=== PATIENT | female | born 1935 | race Caucasian/White ===

== ENCOUNTER 2021-07-18 21:50 | Inpatient (IN) | payer OTHER ==
[~2021-07-18] VITALS: Ht 162.6 cm; Wt 72.6 kg
[2021-07-18 22:06] VITALS: BP_SYST 141
--- NOTE | 2021-07-18 22:06 | NUR ---
JOCY Mcarthur at bedside examining patient.
--- NOTE | 2021-07-18 22:30 | NUR ---
Pt C/O lower abdominal pain, urinary retention and hematuria Pt recently hospitalized at [facility] for blood in urine AOX4 VSS NAD at this time Will continue to monitor
[2021-07-18 22:50] LABS: ANION GAP 9 (5-15); BASOPHILS % (AUTO) 0.6 % (0.0-2.0); CALCIUM 8.8 mg/dL (8.4-11.0); CREATININE 1.42 mg/dL (0.55-1.30); EOSINOPHILS # (AUTO) 0.6 K/uL (0.0-0.4); EOSINOPHILS % (AUTO) 6.8 % (0.0-4.0); GLUCOSE 130 mg/dL (70-99); HEMATOCRIT 27.1 % (36-48); HEMOGLOBIN 9.1 g/dL (12.0-16.0); LYMPHOCYTES % (AUTO) 11.5 % (20.5-51.5); MEAN CORPUSCULAR HEMOGLOBIN 28 pg (27-31); MEAN CORPUSCULAR HGB CONC 34 % (32-36); MEAN CORPUSCULAR VOLUME 84 fL (79.0-98.0); MONOCYTES # (AUTO) 0.9 K/uL (0.0-1.0); MONOCYTES % (AUTO) 9.8 % (1.7-9.3); NEUTROPHILS # (AUTO) 6.2 K/uL (1.8-7.7); NEUTROPHILS % (AUTO) 71.3 % (40.0-70.0); PLATELET COUNT (AUTO) 367 K/uL (130-430); POTASSIUM 3.4 mmol/L (3.5-5.1); RED BLOOD CELL COUNT(AUTO) 3.24 MIL/uL (4.2-6.2); RED CELL DISTRIBUTION WIDTH 14.3 % (9.0-15.0); UREA NITROGEN, BLOOD 21 mg/dL (8-21); WHITE BLOOD COUNT (AUTO) 8.7 K/uL (4.8-10.8)
[2021-07-18 22:56] LABS: ALANINE AMINOTRANSFERASE 11 U/L (12-78); ALBUMIN 3.3 g/dL (3.4-4.8); ASPARTATE AMINOTRANSFERASE 14 U/L (10-37)
[2021-07-18 23:02] LABS: BILIRUBIN,URINE NEGATIVE (NEGATIVE); BLOOD, URINE NEGATIVE (NEGATIVE); CLARITY/URINE CLEAR (CLEAR); COLOR,URINE YELLOW (YELLOW); GLUCOSE,URINE NEGATIVE (NEGATIVE); KETONES,URINE NEGATIVE (NEGATIVE); LEUKOCYTE ESTERASE ,URINE NEGATIVE (NEGATIVE); NITRITE, URINE NEGATIVE (NEGATIVE); PROTEIN URINE TRACE (NEGATIVE); UROBILINOGEN,URINE 0.2 (0.2-1.0)
[2021-07-18 23:04] LABS: SODIUM SERUM 116 mmol/L (136-145)
[2021-07-18 23:05] LABS: CHLORIDE 85 mmol/L (98-107)
--- NOTE | 2021-07-18 23:09 | NUR ---
Call from adelina for critical Sodium @116 Chloride 85 made aware
[2021-07-18 23:11] LABS: TOTAL BILIRUBIN 0.2 mg/dL (0.0-1.0)
[2021-07-18] MEDS ORDERED: NACL 0.9% 1,000 ML IV ONE (23:15)
[2021-07-18 23:29] LABS: BACTERIA,URINE RARE /HPF (None Seen); MUCUS,URINE None Seen /LPF (None Seen); RBC,URINE NONE SEEN /HPF (0-3); WBC,URINE 0-3 /HPF (0-3)
--- NOTE | 2021-07-18 23:47 | NUR ---
Admit bed requested Patient will be admitted to care of Admitted to Tele unit. Diagnosis Hyponatremia Inpatient (Yes or No) no Observation (Yes or No) yes Orientation concerns or request close to nursing station (Yes or No) no Covid Status pending On vent or bipap Isolation requirements Needs a sitter From Home (Yes or if No enter name of facility) yes Requires Dialysis (Yes or No) Med Rec Completed (Yes of No)
[2021-07-19] MEDS: NACL 0.9% 1,000 ML IV SCH ×2 (00:08→14:18)
--- NOTE | 2021-07-19 01:55 | NUR ---
Patient will be admitted to care of dR. Xiong. Admitted to tele unit. Will go to room 133b. Belongings list completed. Complete and up to date summary report printed. SBAR report to be given at bedside with opportunity for questions.
[2021-07-19 02:10] VITALS: BP_SYST 149
[2021-07-19] MEDS ORDERED: LOSA50TA3 PO (02:50)
[2021-07-19] MEDS ORDERED: TRAZ-250 PO (02:50)
[2021-07-19] MEDS ORDERED: SENN8.6T19 PO (02:50)
[2021-07-19] MEDS ORDERED: METO25TA3 PO (02:50)
[2021-07-19] MEDS ORDERED: LIP10 PO (02:50)
[2021-07-19] MEDS ORDERED: HYDR-3917 PO (02:50)
[2021-07-19] MEDS ORDERED: VITD2000 PO (02:50)
[2021-07-19] MEDS ORDERED: HYDR25TA4 PO (02:50)
[2021-07-19] MEDS ORDERED: NOR10 PO (02:50)
[2021-07-19] MEDS ORDERED: GLIP5TAB26 PO (02:50)
--- NOTE | 2021-07-19 02:55 | NUR ---
ADMISSION 86 Y/O FEMALE UNDER DOCTOR BRUNA. DAUGHTER AND PATIENT CONCERN REGARDING URINARY ISSUES/BLEEDING/CLOTTING/CHRONIC GARCIA CATHETER FOR 15 YEARS CHANGED EVERY MONTH. UROLOGY CONSULT PENDING WITH UROLOGIST DOCTOR LILLIANA FROM [facility] NEXT WEEK FOR CYSTOSCOPY, 07/25/21 AND HE ADVISED TO ATTEMPT TO LEAVE GARCIA CATHETER OUT FOR THE TIME BEING. COOPER LUCIANO RN
[2021-07-19] MEDS ORDERED: SODIUM CHLORIDE PO (03:10)
--- NOTE | 2021-07-19 07:02 | NUR ---
Handoff with patient day team registered nurse, Pamela. Jama Santo RN
[2021-07-19 08:00] VITALS: BP_SYST 148
[2021-07-19] MEDS ORDERED: ZOLPIDEM TARTRATE 5 MG TABLET PO PRN (08:00)
[2021-07-19] MEDS ORDERED: DEXTROSE 50% JECT 50 ML DISP.SYRIN IVP PRN (08:00)
[2021-07-19] MEDS ORDERED: NALOXONE HCL 0.4 MG/ML AMP (NARCAN) IVP PRN ×2 (08:00)
[2021-07-19] MEDS ORDERED: DOCUSATE SODIUM 100 MG CAPSULE PO PRN (08:00)
[2021-07-19] MEDS ORDERED: ACETAMINOPHEN 325 MG TABLET PO PRN ×2 (08:00→08:15)
[2021-07-19] MEDS ORDERED: MUPIROCIN 2% TOPICAL OINTMENT 22 GM NS PRN (08:00)
[2021-07-19] MEDS ORDERED: LORazepam 2 MG/ML VIAL IVP PRN (08:00)
[2021-07-19] MEDS ORDERED: POTASSIUM CHLORIDE 20 MEQ TAB.PRT.SR PO PRN (08:00)
[2021-07-19] MEDS ORDERED: ONDANSETRON HCL 4 MG/2 ML VIAL IVP PRN (08:00)
[2021-07-19] MEDS ORDERED: INSULIN LISPRO SLIDING SCALE 100 UNITS/ML VIAL (humaLOG) SUBCUT PRN (08:00)
[2021-07-19] MEDS ORDERED: MAGNESIUM SULFATE 50 ML IV PRN (08:00)
[2021-07-19] MEDS ORDERED: MORPHINE 2 MG/ML INJ. SYRINGE IVP PRN ×2 (08:00)
[2021-07-19 08:53] LABS: ANION GAP 8 (5-15); CALCIUM 8.9 mg/dL (8.4-11.0); CHLORIDE 87 mmol/L (98-107); CREATININE 1.27 mg/dL (0.55-1.30); GLUCOSE 149 mg/dL (70-99); POTASSIUM 3.5 mmol/L (3.5-5.1); UREA NITROGEN, BLOOD 19 mg/dL (8-21)
[2021-07-19] MEDS: HEPARIN SODIUM,PORCINE 5,000 UNITS/ML VIAL SUBCUT SCH ×2 (09:16→21:48)
[2021-07-19] MEDS: amLODIPine BESYLATE 10 MG TABLET PO SCH (09:17)
[2021-07-19] MEDS: CHOLECALCIFEROL (VITAMIN D3) 2,000 UNIT TABLET PO SCH (09:18)
[2021-07-19] MEDS: ATORVASTATIN 10 MG TABLET PO SCH (09:18)
[2021-07-19] MEDS: LOSARTAN POTASSIUM 50 MG TABLET (COZAAR) PO SCH ×2 (09:18→21:45)
--- NOTE | 2021-07-19 09:20 | NUR ---
CONSULT UROLOGY URINARY RETENTION [facility]ICK TARIQ [phone] S[facility]
--- NOTE | 2021-07-19 09:21 | NUR ---
CONSULT NEPHROLOGY [facility] [phone] [facility]
[2021-07-19 09:28] LABS: SODIUM SERUM 118 mmol/L (136-145)
[2021-07-19] MEDS: SODIUM CHLORIDE 500 MG TABLET PO SCH (10:48)
[2021-07-19] MEDS: glipiZIDE XL 2.5 MG/TAB (GLUCOTROL XL) PO SCH (10:49)
[2021-07-19 11:45] VITALS: BP_SYST 141
--- NOTE | 2021-07-19 14:43 | NUR ---
PRE VOIDING AND POST VOIDING URINE DURING RENAL ULTRASOUND VOLUME OF URINE NOTED ON RENAL ULTRASOUND 196ML, POST VOID URINE AFTER 91ML VOLUME OF URINE POST VOID DURING RENAL SCAN. DR MCFARLAND MADE AWARE. DR FUENTES TO EVALUATE PATIENT.
[2021-07-19 16:17] VITALS: BP_SYST 137
--- NOTE | 2021-07-19 18:36 | NUR ---
Patient is resting quietly at this time. Pt's daughter is present at bedside to offer support. Pt has been up to bedside commode frequently to void this shift- with ass't. She has been able to void freely and maintain continence of her bladder. Pt offered snacks in between meals for glucose level 68 mg/dl. Pt consumed 160 ml of orange juice. No s/s hypoglycemic reactions noted. Will continue to monitor.
[2021-07-19 20:45] VITALS: BP_SYST 131
[2021-07-19] MEDS ORDERED: traZODone HCL 50 MG TABLET (DESYREL) PO SCH (21:00)
[2021-07-20 02:20] VITALS: BP_SYST 145
[2021-07-20] MEDS: NACL 0.9% 1,000 ML IV SCH (04:36)
[2021-07-20 06:34] LABS: ANION GAP 9 (5-15); CALCIUM 7.9 mg/dL (8.4-11.0); CHLORIDE 93 mmol/L (98-107); CREATININE 1.06 mg/dL (0.55-1.30); GLUCOSE 98 mg/dL (70-99); POTASSIUM 3.6 mmol/L (3.5-5.1); SODIUM SERUM 126 mmol/L (136-145); UREA NITROGEN, BLOOD 15 mg/dL (8-21)
[2021-07-20 06:37] LABS: BASOPHILS # (AUTO) 0.1 K/uL (0.0-0.2); BASOPHILS % (AUTO) 0.9 % (0.0-2.0); EOSINOPHILS # (AUTO) 0.3 K/uL (0.0-0.4); EOSINOPHILS % (AUTO) 5.5 % (0.0-4.0); HEMATOCRIT 22.7 % (36-48); HEMOGLOBIN 7.8 g/dL (12.0-16.0); LYMPHOCYTES # (AUTO) 0.8 K/uL (1.0-5.5); LYMPHOCYTES % (AUTO) 13.6 % (20.5-51.5); MEAN CORPUSCULAR HEMOGLOBIN 29 pg (27-31); MEAN CORPUSCULAR HGB CONC 34 % (32-36); MEAN CORPUSCULAR VOLUME 84 fL (79.0-98.0); MONOCYTES # (AUTO) 0.6 K/uL (0.0-1.0); MONOCYTES % (AUTO) 9.6 % (1.7-9.3); NEUTROPHILS # (AUTO) 4.1 K/uL (1.8-7.7); NEUTROPHILS % (AUTO) 70.4 % (40.0-70.0); PLATELET COUNT (AUTO) 328 K/uL (130-430); RED BLOOD CELL COUNT(AUTO) 2.72 MIL/uL (4.2-6.2); RED CELL DISTRIBUTION WIDTH 14.2 % (9.0-15.0); WHITE BLOOD COUNT (AUTO) 5.8 K/uL (4.8-10.8)
--- NOTE | 2021-07-20 07:30 | NUR ---
OPENING NOTE Patient awake and alert, sitting at bedside. Patient able to ambulate to the bedside commode with minimal assist. Patient complains of loose stools, MD aware. No IV access at this time, patient removed her IV at shift change. Patient denies pain, no sign of distress. Safety checks made and all needs met at this time, will continue to monitor.
[2021-07-20 08:00] VITALS: BP_SYST 144
--- NOTE | 2021-07-20 08:00 | NUR ---
ASSESSMENT SIGNED OFF Marleni, charge nurse, cosigned assessment because coverage RN, Eugenia, does not have access as a registry nurse.
[2021-07-20] MEDS: HEPARIN SODIUM,PORCINE 5,000 UNITS/ML VIAL SUBCUT SCH (08:32)
[2021-07-20] MEDS: CHOLECALCIFEROL (VITAMIN D3) 2,000 UNIT TABLET PO SCH (08:32)
[2021-07-20] MEDS: LOSARTAN POTASSIUM 50 MG TABLET (COZAAR) PO SCH (08:33)
[2021-07-20] MEDS: amLODIPine BESYLATE 10 MG TABLET PO SCH (08:33)
[2021-07-20] MEDS: SODIUM CHLORIDE 500 MG TABLET PO SCH (08:33)
[2021-07-20] MEDS: glipiZIDE XL 2.5 MG/TAB (GLUCOTROL XL) PO SCH (08:33)
[2021-07-20] MEDS: ATORVASTATIN 10 MG TABLET PO SCH (08:34)
--- NOTE | 2021-07-20 11:37 | NUR ---
PATIENT IS SAFE TO AMBULATE WITH NURSING ASSISTANCE. SHE IS TO USE THE FWW. SHE DOES NOT NEED FURTHER PHYSICAL THERAPY AT THIS TIME. RECOMMEND HOME HEALTH PT. SEE THE DAILY PHYSICAL THERAPY NOTES.
[2021-07-20 12:58] VITALS: BP_SYST 139
--- NOTE | 2021-07-20 13:00 | NUR ---
NEW IV PLACED IV placed in right AC, 22g. Previous IV was pulled out by patient. Prescribed fluids resumed.
[2021-07-20 15:27] VITALS: BP_SYST 139
--- NOTE | 2021-07-20 16:31 | NUR ---
D/C Patient Patient given medication reconciliation form and D/C instructions. Exit Care provided. Patient verbalized understanding. MD discussed with patient the results and treatment provided. Ambulatory with walker assist for discharge to home. Patient in stable condition, ID band removed. IV catheter removed, intact and dressing applied, no active bleeding. Patient educated on pain management. Patient going home via private auto with daughters. All belongings sent with patient.
== END 2021-07-20 16:25 | disposition home health service (06) | DRG 698 ==
LOC: SED 21:50 → STU 23:52 → SMU 07-20 13:24
PROVIDERS: ADMIT General Practice; ATTEND General Practice
DX: N31.9 Neuromuscular dysfunction of bladder, unspecified (principal); N17.0 Acute kidney failure with tubular necrosis; E87.1 Hypo-osmolality and hyponatremia; E44.1 Mild protein-calorie malnutrition; R33.8 Other retention of urine; E11.9 Type 2 diabetes mellitus without complications; D63.8 Anemia in other chronic diseases classified elsewhere; I10 Essential (primary) hypertension; Z20.822 Contact with and (suspected) exposure to COVID-19
CPT/HCPCS: 36415; 76770; 80048; 80053; 81000; 82962; 83036; 83605; 83735; 85025; 87040; 87081; 87086; 93971; 97116-GP; 97530-GP; 99285; G0378; J1644; J2270

== ENCOUNTER 2021-07-21 22:00 | Inpatient (IN) | payer OTHER ==
[~2021-07-21] VITALS: Ht 165.1 cm; Wt 74.2 kg
[~2021-07-21 22:00] MED LIST: GLIP5TAB26 PO; HYDR-3917 PO; LIP10 PO; LOSA50TA3 PO; METO25TA3 PO; NOR10 PO; SENN8.6T19 PO; SODIUM CHLORIDE PO; TRAZ-250 PO; VITD2000 PO
[2021-07-21 22:16] VITALS: BP_SYST 151
--- NOTE | 2021-07-21 22:20 | NUR ---
JOCY Mcarthur at bedside examining patient.
[2021-07-21 22:48] LABS: BASOPHILS # (AUTO) 0.1 K/uL (0.0-0.2); BASOPHILS % (AUTO) 1.2 % (0.0-2.0); EOSINOPHILS # (AUTO) 0.6 K/uL (0.0-0.4); EOSINOPHILS % (AUTO) 6.5 % (0.0-4.0); HEMATOCRIT 26.5 % (36-48); HEMOGLOBIN 8.9 g/dL (12.0-16.0); LYMPHOCYTES # (AUTO) 1.1 K/uL (1.0-5.5); LYMPHOCYTES % (AUTO) 12.8 % (20.5-51.5); MEAN CORPUSCULAR HEMOGLOBIN 28 pg (27-31); MEAN CORPUSCULAR HGB CONC 34 % (32-36); MEAN CORPUSCULAR VOLUME 84 fL (79.0-98.0); MONOCYTES # (AUTO) 0.9 K/uL (0.0-1.0); MONOCYTES % (AUTO) 10.8 % (1.7-9.3); NEUTROPHILS # (AUTO) 5.9 K/uL (1.8-7.7); NEUTROPHILS % (AUTO) 68.7 % (40.0-70.0); PLATELET COUNT (AUTO) 411 K/uL (130-430); RED BLOOD CELL COUNT(AUTO) 3.15 MIL/uL (4.2-6.2); RED CELL DISTRIBUTION WIDTH 14.7 % (9.0-15.0); WHITE BLOOD COUNT (AUTO) 8.6 K/uL (4.8-10.8)
[2021-07-21 22:58] LABS: ANION GAP 7 (5-15); CHLORIDE 95 mmol/L (98-107); CREATININE 1.29 mg/dL (0.55-1.30); GLUCOSE 120 mg/dL (70-99); POTASSIUM 3.8 mmol/L (3.5-5.1); SODIUM SERUM 126 mmol/L (136-145); UREA NITROGEN, BLOOD 14 mg/dL (8-21)
--- NOTE | 2021-07-21 23:00 | NUR ---
Pt C/O lower abdominal pain hx of urinary retention AOX4 VSS Able to make needs known No acute distress at this time Daugter at bedside
[2021-07-21 23:11] LABS: ALANINE AMINOTRANSFERASE 14 U/L (12-78); ALBUMIN 3.4 g/dL (3.4-4.8); ASPARTATE AMINOTRANSFERASE 17 U/L (10-37)
[2021-07-21 23:29] LABS: TOTAL BILIRUBIN < 0.1 mg/dL (0.0-1.0)
[2021-07-21 23:40] LABS: BILIRUBIN,URINE NEGATIVE (NEGATIVE); BLOOD, URINE NEGATIVE (NEGATIVE); CLARITY/URINE CLEAR (CLEAR); COLOR,URINE YELLOW (YELLOW); GLUCOSE,URINE NEGATIVE (NEGATIVE); KETONES,URINE NEGATIVE (NEGATIVE); LEUKOCYTE ESTERASE ,URINE TRACE (NEGATIVE); NITRITE, URINE NEGATIVE (NEGATIVE); PROTEIN URINE 2+ (NEGATIVE); UROBILINOGEN,URINE 0.2 (0.2-1.0)
--- NOTE | 2021-07-21 23:57 | NUR ---
Rosa placed 16F Urine yellow and clear
[2021-07-22 00:01] LABS: RBC,URINE 0-3 /HPF (0-3); WBC,URINE 50-80 /HPF (0-3)
[2021-07-22 00:02] LABS: BACTERIA,URINE MODERATE /HPF (None Seen); MUCUS,URINE None Seen /LPF (None Seen); YEAST,URINE Few /HPF (None Seen)
[2021-07-22] MEDS ORDERED: cefTRIAXone 1 GM in D5W 50 ML IV ONE (02:00)
[2021-07-22] MEDS ORDERED: NACL 0.9% 1,000 ML IV ONE (02:00)
[2021-07-22] MEDS ORDERED: cefTRIAXone 1 GM VIAL ONE (02:05)
--- NOTE | 2021-07-22 02:27 | NUR ---
Pt resting comfortably in bed AOX4 VSS Able to make needs known Family bedside
--- NOTE | 2021-07-22 04:49 | NUR ---
Admit bed requested Patient will be admitted to care of Dr. Garsia. Admitted to TELE unit. Diagnosis: UTI, HYPONATREMIA, HYPOTENSION Inpatient: Yes Observation: Yes Orientation concerns or request close to nursing station: NO Covid Status: PENDING From Home: Yes Med Rec Completed: Yes
--- NOTE | 2021-07-22 05:10 | NUR ---
600cc Urine output noted
[2021-07-22] MEDS: NACL 0.9% 1,000 ML IV SCH ×2 (05:58→20:24)
--- NOTE | 2021-07-22 06:47 | NUR ---
ADMIT NOTE Received pt from ER to the floor with a diagnosis of UTI. Admission process initiated. patient oriented to pain management, safety and call light-teach back done.
--- NOTE | 2021-07-22 06:56 | NUR ---
. Admitted to tele unit. Will go to room 112B. Belongings list completed. Complete and up to date summary report printed. SBAR report to be given at bedside with opportunity for questions.
--- NOTE | 2021-07-22 07:30 | NUR ---
rn opening note report was endorsed by night nurse. patient is awake and alert no sign of any distress, breathing is equal and non labored. patient has all safety precautions in place, educated airborne operations light, call light is with her.
[2021-07-22 07:50] VITALS: BP_SYST 140
[2021-07-22] MEDS: SENNOSIDES 8.6 MG TABLET PO SCH (09:00)
[2021-07-22] MEDS: ATORVASTATIN 10 MG TABLET PO SCH (09:36)
[2021-07-22] MEDS: LOSARTAN POTASSIUM 50 MG TABLET (COZAAR) PO SCH ×2 (09:37→20:23)
[2021-07-22] MEDS: METOPROLOL SUCCINATE 25 MG TAB.SR.24H (TOPROL XL) PO SCH (09:37)
--- NOTE | 2021-07-22 09:37 | NUR ---
medication patients scheduled medication given per order. patient is awake and alert sitting up in bed. no complaints at this time. call light is with her educated to use call light for assistance. close to nurses station no other needs at this time.
[2021-07-22] MEDS ORDERED: POTASSIUM CHLORIDE 40 MEQ, LIDOCAINE JECT 2% PF 100 MG 50 MG in NS 250 ML IV PRN (10:30)
[2021-07-22] MEDS ORDERED: D5W 1,000 ML IV PRN (10:30)
[2021-07-22] MEDS ORDERED: MAGNESIUM SULFATE 50 ML IV PRN (10:30)
[2021-07-22] MEDS ORDERED: LORazepam 2 MG/ML VIAL IVP PRN (10:30)
[2021-07-22] MEDS ORDERED: HYDROcodone/ACETAMIN 5-325 MG TAB (NORCO/ VICODIN) PO PRN (10:30)
[2021-07-22] MEDS ORDERED: INSULIN LISPRO SLIDING SCALE 100 UNITS/ML VIAL (humaLOG) SUBCUT PRN (10:30)
[2021-07-22] MEDS ORDERED: MORPHINE 4 MG INJ. 4 MG/ML VIAL IVP PRN (10:30)
[2021-07-22] MEDS ORDERED: NACL 0.9% 1,000 ML IV SCH (10:30)
[2021-07-22] MEDS ORDERED: DEXTROSE 50% JECT 50 ML DISP.SYRIN IVP PRN (10:30)
[2021-07-22] MEDS ORDERED: ONDANSETRON HCL 4 MG/2 ML VIAL IVP PRN (10:30)
[2021-07-22] MEDS ORDERED: GLUCOSE (DEXTROSE) ORAL GEL -Adults PO PRN (10:30)
[2021-07-22] MEDS ORDERED: MORPHINE 2 MG/ML INJ. SYRINGE IVP PRN (10:30)
[2021-07-22] MEDS ORDERED: CHOLECALCIFEROL (VITAMIN D3) 2,000 UNIT TABLET PO ONE (11:15)
[2021-07-22] MEDS ORDERED: amLODIPine BESYLATE 10 MG TABLET PO ONE (11:15)
[2021-07-22 11:26] VITALS: BP_SYST 138
[2021-07-22] MEDS ORDERED: ENOXAPARIN SODIUM 40 MG/0.4 ML SYRINGE SUBCUT ONE (11:30)
[2021-07-22] MEDS ORDERED: glipiZIDE XL 5 MG TAB ( GLUCOTROL XL) PO ONE (11:30)
[2021-07-22 11:41] LABS: FREE T4 (FREE THYROXINE) 1.1 ng/dl (0.8-1.5); THYROID STIMULATING HORMONE 1.79 uIu/mL (0.36-3.74)
--- NOTE | 2021-07-22 11:46 | NUR ---
accu check / medication patients scheduled medication given per order. patient is awake and alert sitting up in bed. patient educated stitch bonding machine tender light, call light is with her. patients accu check done. no coverage needed. patient has no other needs at this time.
--- NOTE | 2021-07-22 13:45 | NUR ---
rn rounding patient is awake and alert sitting in bed. family is at bed side. patient has no complaints at this time. call light is with her, educated to use for assistance. patient is close to nurses station. bed alarm is on.
[2021-07-22] MEDS ORDERED: IBUP-1969 PO (14:00)
[2021-07-22 15:39] VITALS: BP_SYST 141
--- NOTE | 2021-07-22 15:54 | NUR ---
rn rounding Patient is awake and alert sitting in bed, patient has family at bedside. Patient has no complaints at this time. call light is with her educated to use for assistance.
--- NOTE | 2021-07-22 16:21 | NUR ---
accu check patients accu check done no coverage needed. patient given some grahm crackers. patient has family at bedside. patient has no other needs at this time. call light is with her.
--- NOTE | 2021-07-22 18:56 | NUR ---
rn closing note patient is awake and alert in bed, guy draining to gravity. patient has no complaints at this time. call light is with her, educated to use for assistance. patient has no other needs at this time.
[2021-07-22 20:00] VITALS: BP_SYST 118
[2021-07-22] MEDS: traZODone HCL 50 MG TABLET (DESYREL) PO SCH (20:23)
[2021-07-22] MEDS ORDERED: cefTRIAXone 1 GM IVPB PREMIX 50 ML IV ONE (20:54)
[2021-07-22] MEDS: cefTRIAXone 1 GM IVPB PREMIX 50 ML IV SCH (21:41)
[2021-07-22] MEDS ORDERED: FLUCONAZOLE 200 MG TABLET (DIFLUCAN) PO ONE (23:00)
[2021-07-23 01:06] VITALS: BP_SYST 98
--- NOTE | 2021-07-23 07:15 | NUR ---
AM ROUNDS WITH OUTGOING IN PROCESSING INSTRUCTOR IV ON LEFT ANTECUBITAL WAS ALREADY OUT OF THE VEIN, IV DC'D, WILL RE-INSERT A NEW LINE AFTER PATIENT EAT BREAKFAST.
[2021-07-23 07:18] LABS: BASOPHILS # (AUTO) 0.1 K/uL (0.0-0.2); BASOPHILS % (AUTO) 0.9 % (0.0-2.0); EOSINOPHILS # (AUTO) 0.6 K/uL (0.0-0.4); EOSINOPHILS % (AUTO) 8.3 % (0.0-4.0); HEMATOCRIT 24.9 % (36-48); HEMOGLOBIN 8.2 g/dL (12.0-16.0); LYMPHOCYTES # (AUTO) 0.9 K/uL (1.0-5.5); MEAN CORPUSCULAR HEMOGLOBIN 28 pg (27-31); MEAN CORPUSCULAR HGB CONC 33 % (32-36); MEAN CORPUSCULAR VOLUME 86 fL (79.0-98.0); MONOCYTES # (AUTO) 0.6 K/uL (0.0-1.0); MONOCYTES % (AUTO) 9.4 % (1.7-9.3); NEUTROPHILS # (AUTO) 4.5 K/uL (1.8-7.7); NEUTROPHILS % (AUTO) 68.4 % (40.0-70.0); PLATELET COUNT (AUTO) 404 K/uL (130-430); RED BLOOD CELL COUNT(AUTO) 2.91 MIL/uL (4.2-6.2); WHITE BLOOD COUNT (AUTO) 6.7 K/uL (4.8-10.8)
[2021-07-23 07:47] LABS: ALANINE AMINOTRANSFERASE 12 U/L (12-78); ANION GAP 10 (5-15); ASPARTATE AMINOTRANSFERASE 13 U/L (10-37); CHLORIDE 102 mmol/L (98-107); CREATININE 1.11 mg/dL (0.55-1.30); GLUCOSE 108 mg/dL (70-99); PHOSPHORUS 3.1 mg/dL (2.7-4.5); POTASSIUM 3.6 mmol/L (3.5-5.1); SODIUM SERUM 135 mmol/L (136-145); THYROID STIMULATING HORMONE 1.99 uIu/mL (0.36-3.74); TOTAL BILIRUBIN 0.2 mg/dL (0.0-1.0); UREA NITROGEN, BLOOD 9 mg/dL (8-21)
[2021-07-23 07:50] VITALS: BP_SYST 152
--- NOTE | 2021-07-23 08:00 | NUR ---
NOTES ASSISTED TO THE BATHROOM WITH DIARRHEA, WILL CONTINUE TO MONITOR.
[2021-07-23] MEDS: LOSARTAN POTASSIUM 50 MG TABLET (COZAAR) PO SCH ×2 (08:14→21:19)
[2021-07-23] MEDS: glipiZIDE XL 5 MG TAB ( GLUCOTROL XL) PO SCH (08:15)
[2021-07-23] MEDS: ATORVASTATIN 10 MG TABLET PO SCH (08:16)
[2021-07-23] MEDS: amLODIPine BESYLATE 10 MG TABLET PO SCH (08:17)
[2021-07-23] MEDS: CHOLECALCIFEROL (VITAMIN D3) 2,000 UNIT TABLET PO SCH (08:18)
[2021-07-23] MEDS: SENNOSIDES 8.6 MG TABLET PO SCH (08:25)
[2021-07-23] MEDS: ENOXAPARIN SODIUM 40 MG/0.4 ML SYRINGE SUBCUT SCH (08:26)
[2021-07-23] MEDS: METOPROLOL SUCCINATE 25 MG TAB.SR.24H (TOPROL XL) PO SCH (08:31)
--- NOTE | 2021-07-23 09:00 | NUR ---
IV RE-INSERTED NEW IV RE-INSERTED ON RIGHT ANTECUBITAL G 22, PATENT AND WITH GOOD BACK FLOW.
[2021-07-23 09:11] LABS: CHOLESTEROL 128 mg/dL (<200); HDL CHOLESTEROL 76 mg/dL (>55); LDL CHOLESTEROL 38 mg/dL (<100); TRIGLYCERIDES 93 mg/dL (30-150)
--- NOTE | 2021-07-23 11:00 | NUR ---
BM WITH DIARRHEA, WENT TO THE BATHROOM 5X, WILL MONITOR. ABLE TO AMBULATE WITH ASSISTANCE.
[2021-07-23 11:28] VITALS: BP_SYST 111
--- NOTE | 2021-07-23 13:00 | NUR ---
SEEN BY UROLOGIST DR FUENTES CAME TO SEE PT. FAMILY AT BEDSIDE. MD DISCUSSED THE PLAN FOR PATIENT TO KEEP GARCIA IN PLACE AND OUTPATIENT FOLLOW UP FOR PROCEDURE.
--- NOTE | 2021-07-23 15:00 | NUR ---
NOTES DAUGHTER AT BEDSIDE, NO DIARRHEA NOTED. AMBULATE TO THE RESTROOM.
[2021-07-23 15:09] VITALS: BP_SYST 125
[2021-07-23] MEDS: NACL 0.9% 1,000 ML IV SCH (16:12)
--- NOTE | 2021-07-23 17:40 | NUR ---
DINNER DINNER SERVED, ACCUCHECK 89.
[2021-07-23 19:00] VITALS: BP_SYST 143
--- NOTE | 2021-07-23 19:19 | NUR ---
NOTES FAMILY AT BEDSIDE.
[2021-07-23 20:00] VITALS: BP_SYST 143
[2021-07-23] MEDS: traZODone HCL 50 MG TABLET (DESYREL) PO SCH (21:19)
[2021-07-23] MEDS ORDERED: cefTRIAXone 1 GM IVPB PREMIX 50 ML IV ONE (21:46)
[2021-07-23] MEDS: cefTRIAXone 1 GM IVPB PREMIX 50 ML IV SCH (22:07)
[2021-07-24 00:11] VITALS: BP_SYST 127
[2021-07-24] MEDS: BISMUTH SUBSALICYLATE 240 ML BOTTLE PO PRN ×2 (03:15→11:01)
[2021-07-24 07:13] LABS: BASOPHILS # (AUTO) 0.1 K/uL (0.0-0.2); BASOPHILS % (AUTO) 1.3 % (0.0-2.0); EOSINOPHILS # (AUTO) 0.6 K/uL (0.0-0.4); EOSINOPHILS % (AUTO) 8.1 % (0.0-4.0); HEMATOCRIT 23.7 % (36-48); HEMOGLOBIN 7.9 g/dL (12.0-16.0); LYMPHOCYTES # (AUTO) 0.9 K/uL (1.0-5.5); LYMPHOCYTES % (AUTO) 12.2 % (20.5-51.5); MEAN CORPUSCULAR HEMOGLOBIN 29 pg (27-31); MEAN CORPUSCULAR HGB CONC 33 % (32-36); MEAN CORPUSCULAR VOLUME 86 fL (79.0-98.0); MONOCYTES # (AUTO) 0.7 K/uL (0.0-1.0); MONOCYTES % (AUTO) 9.5 % (1.7-9.3); NEUTROPHILS # (AUTO) 4.9 K/uL (1.8-7.7); NEUTROPHILS % (AUTO) 68.9 % (40.0-70.0); PLATELET COUNT (AUTO) 397 K/uL (130-430); RED BLOOD CELL COUNT(AUTO) 2.77 MIL/uL (4.2-6.2); WHITE BLOOD COUNT (AUTO) 7.1 K/uL (4.8-10.8)
[2021-07-24 08:00] VITALS: BP_SYST 128
--- NOTE | 2021-07-24 08:00 | NUR ---
AM NOTES PT IN BED. A/OX2. RES EVEN AND UNLABORED.VITALS STABLE . SAFETY/FALL PRECAUTIONS IN PLACE. POC DISCUSSED WITH PT. VERBALIZED UNDERSTANDING. NEEDS ATTENDED. CALL LIGHT WITH IN REACH.
[2021-07-24] MEDS: CHOLECALCIFEROL (VITAMIN D3) 2,000 UNIT TABLET PO SCH (08:36)
[2021-07-24] MEDS: glipiZIDE XL 5 MG TAB ( GLUCOTROL XL) PO SCH (08:36)
[2021-07-24] MEDS: ATORVASTATIN 10 MG TABLET PO SCH (08:36)
[2021-07-24] MEDS: METOPROLOL SUCCINATE 25 MG TAB.SR.24H (TOPROL XL) PO SCH (08:37)
[2021-07-24] MEDS: LOSARTAN POTASSIUM 50 MG TABLET (COZAAR) PO SCH ×2 (08:37→21:39)
[2021-07-24] MEDS: amLODIPine BESYLATE 10 MG TABLET PO SCH (08:37)
[2021-07-24 08:38] LABS: ALANINE AMINOTRANSFERASE 17 U/L (12-78); ANION GAP 12 (5-15); ASPARTATE AMINOTRANSFERASE 10 U/L (10-37); CALCIUM 9.2 mg/dL (8.4-11.0); CHLORIDE 103 mmol/L (98-107); CREATININE 1.07 mg/dL (0.55-1.30); GLUCOSE 90 mg/dL (70-99); PHOSPHORUS 3.2 mg/dL (2.7-4.5); POTASSIUM 3.5 mmol/L (3.5-5.1); SODIUM SERUM 135 mmol/L (136-145); UREA NITROGEN, BLOOD 8 mg/dL (8-21)
[2021-07-24 08:46] LABS: TOTAL BILIRUBIN < 0.1 mg/dL (0.0-1.0)
[2021-07-24] MEDS: ENOXAPARIN SODIUM 40 MG/0.4 ML SYRINGE SUBCUT SCH (08:46)
[2021-07-24] MEDS: SENNOSIDES 8.6 MG TABLET PO SCH (08:47)
--- NOTE | 2021-07-24 09:26 | NUR ---
PT. PT WALKED WITH PT. USING WALKER STEADY GAIT. DENIES ANY PAIN OR ORTHER DISCOMFORT.
[2021-07-24] MEDS ORDERED: SACCHAROMYCES BOULARDII 250 MG CAPSULE (FLORASTOR) PO SCH (11:00)
[2021-07-24 11:30] VITALS: BP_SYST 131
[2021-07-24] MEDS ORDERED: LACTOBACILLUS RHAMNOSUS GG 1 CAP CAPSULE PO ONE (11:30)
--- NOTE | 2021-07-24 12:30 | NUR ---
pt stable notin acute distress .vital stable. daughter at bed side. .
--- NOTE | 2021-07-24 15:03 | NUR ---
pt resting comfortably in bed. denies any pain or other discomfort,.
[2021-07-24 15:42] VITALS: BP_SYST 132
--- NOTE | 2021-07-24 18:10 | NUR ---
closing notes pt stable.denies any pain or orther discomfort. safety and fall precautions in place. not in acute distress .call light within reach. needs attended. daughter at bed side.
[2021-07-24 20:00] VITALS: BP_SYST 143
[2021-07-24] MEDS ORDERED: cefTRIAXone 1 GM IVPB PREMIX 50 ML IV SCH (21:00)
[2021-07-24] MEDS: LACTOBACILLUS RHAMNOSUS GG 1 CAP CAPSULE PO SCH (21:38)
[2021-07-24] MEDS: traZODone HCL 50 MG TABLET (DESYREL) PO SCH (21:39)
[2021-07-25 01:06] VITALS: BP_SYST 140
[2021-07-25 06:53] LABS: EOSINOPHILS # (AUTO) 0.6 K/uL (0.0-0.4); EOSINOPHILS % (AUTO) 11.6 % (0.0-4.0); HEMATOCRIT 22.6 % (36-48); HEMOGLOBIN 7.4 g/dL (12.0-16.0); LYMPHOCYTES # (AUTO) 0.8 K/uL (1.0-5.5); MEAN CORPUSCULAR HEMOGLOBIN 28 pg (27-31); MEAN CORPUSCULAR HGB CONC 33 % (32-36); MEAN CORPUSCULAR VOLUME 86 fL (79.0-98.0); MONOCYTES # (AUTO) 0.6 K/uL (0.0-1.0); MONOCYTES % (AUTO) 11.3 % (1.7-9.3); PLATELET COUNT (AUTO) 369 K/uL (130-430); RED BLOOD CELL COUNT(AUTO) 2.62 MIL/uL (4.2-6.2); RED CELL DISTRIBUTION WIDTH 14.9 % (9.0-15.0); WHITE BLOOD COUNT (AUTO) 5.2 K/uL (4.8-10.8)
[2021-07-25 07:38] LABS: ALANINE AMINOTRANSFERASE 13 U/L (12-78); ALBUMIN 2.6 g/dL (3.4-4.8); ANION GAP 11 (5-15); CHLORIDE 100 mmol/L (98-107); POTASSIUM 3.4 mmol/L (3.5-5.1); SODIUM SERUM 132 mmol/L (136-145); TOTAL BILIRUBIN 0.3 mg/dL (0.0-1.0)
[2021-07-25 08:00] VITALS: BP_SYST 140
[2021-07-25 08:11] LABS: ASPARTATE AMINOTRANSFERASE 12 U/L (10-37); C-REACTIVE PROTEIN QUANT 0.7 mg/dL (0-0.5); CALCIUM 8.3 mg/dL (8.4-11.0); CREATININE 1.07 mg/dL (0.55-1.30); GLUCOSE 87 mg/dL (70-99); NEUTROPHILS % (AUTO) 60.8 % (40.0-70.0); PHOSPHORUS 3.7 mg/dL (2.7-4.5); UREA NITROGEN, BLOOD 8 mg/dL (8-21)
[2021-07-25 08:12] LABS: BASOPHILS % (AUTO) 0.3 % (0.0-2.0); NEUTROPHILS # (AUTO) 3.2 K/uL (1.8-7.7)
[2021-07-25] MEDS: LACTOBACILLUS RHAMNOSUS GG 1 CAP CAPSULE PO SCH (09:43)
[2021-07-25] MEDS: amLODIPine BESYLATE 10 MG TABLET PO SCH (09:44)
[2021-07-25] MEDS: LOSARTAN POTASSIUM 50 MG TABLET (COZAAR) PO SCH (09:45)
[2021-07-25] MEDS: SENNOSIDES 8.6 MG TABLET PO SCH (09:45)
[2021-07-25] MEDS: METOPROLOL SUCCINATE 25 MG TAB.SR.24H (TOPROL XL) PO SCH (09:45)
[2021-07-25] MEDS: ATORVASTATIN 10 MG TABLET PO SCH (09:46)
[2021-07-25] MEDS: glipiZIDE XL 5 MG TAB ( GLUCOTROL XL) PO SCH (09:46)
[2021-07-25] MEDS: CHOLECALCIFEROL (VITAMIN D3) 2,000 UNIT TABLET PO SCH (09:46)
[2021-07-25] MEDS: ENOXAPARIN SODIUM 40 MG/0.4 ML SYRINGE SUBCUT SCH (09:47)
[2021-07-25 11:28] VITALS: BP_SYST 137
[2021-07-25] MEDS ORDERED: LACT1CAP57 PO (11:37)
[2021-07-25] MEDS ORDERED: LEVO500T90 PO (11:37)
--- NOTE | 2021-07-25 12:00 | NUR ---
PATIENT WAS SEEN EARLIER FOR PHYSICAL THERAPY. PATIENT WAS ABLE TO AMBULATE WITH THE FWW, STAND BY ASSIST. HER DAUGHTER WAS PRESENT. PATIENT IS SAFE TO AMBULATE WITH NURSING AND FAMILY ASSISTANCE. SHE DOES NOT NEED FURTHER PHYSICAL THERAPY AT THIS TIME. INFORMED RN.
[2021-07-25 12:50] LABS: ERYTHROCYTE SEDIMENTATION RATE 25 MM/HR (0-20)
[2021-07-25 13:50] VITALS: BP_SYST 137
== END 2021-07-25 14:48 | disposition home or self-care (01) | DRG 871 ==
LOC: SED 22:00 → STU 07-22 04:37 → SMU 07-24 23:36
PROVIDERS: ADMIT Preventive Medicine Preventive Medicine/Occupational Environmental Medicine; ATTEND Preventive Medicine Preventive Medicine/Occupational Environmental Medicine
DX: A41.9 Sepsis, unspecified organism (principal); E43 Unspecified severe protein-calorie malnutrition; N39.0 Urinary tract infection, site not specified; E87.1 Hypo-osmolality and hyponatremia; I31.3 Pericardial effusion (noninflammatory); B37.3 Candidiasis of vulva and vagina; D64.9 Anemia, unspecified; E11.9 Type 2 diabetes mellitus without complications; E83.52 Hypercalcemia; E87.6 Hypokalemia; E88.09 Other disorders of plasma-protein metabolism, not elsewhere classified; K59.00 Constipation, unspecified; G47.00 Insomnia, unspecified; Z20.822 Contact with and (suspected) exposure to COVID-19; N31.9 Neuromuscular dysfunction of bladder, unspecified; I10 Essential (primary) hypertension; K57.90 Diverticulosis of intestine, part unspecified, without perforation or abscess without bleeding; E78.5 Hyperlipidemia, unspecified; F03.90 Unspecified dementia, unspecified severity, without behavioral disturbance, psychotic disturbance, mood disturbance, and anxiety; M41.9 Scoliosis, unspecified; B95.2 Enterococcus as the cause of diseases classified elsewhere; B96.89 Other specified bacterial agents as the cause of diseases classified elsewhere; Z90.710 Acquired absence of both cervix and uterus; Z79.899 Other long term (current) drug therapy; Z68.27 Body mass index [BMI] 27.0-27.9, adult
CPT/HCPCS: 36415; 71045; 76376; 76770; 80053; 80061; 81000; 82962; 83036; 83605; 83735; 83880; 84100; 84439; 84443; 84484; 85025; 85651-TC; 86140; 87040; 87081; 87086; 87186-TC; 93005; 93306; 96361; 96365; 97116-GP; 97530-GP; 99285; G0378; J0696; J1650